=== PATIENT | female | born 1970 | race African-American/Black ===

== ENCOUNTER → 2016-09-11 | Outpatient (CLI) | payer OTHER ==
--- NOTE | ~2016-09-11 | US98 ---
[facility] A Service of [facility] RADIOLOGY TEXT RESULTS PATIENT: MICHELE CASPER LOCATION: [facility] : 74 UNIT #: [id number] AGE: [address]: ERICA KIM APRN SEX: F ORDER DR: [id number] [facility] [address] [place], [place] [address] [id number] O MR#: [id number] Acc #: [id number] NAME: MICHELE CASPER : 1970 SEX: F STUDY DATE/TIME: 09/11/2016 13:13 UNIT: [facility] ROOM: STUDY DESCRIPTION: US Pelvic Non-OB Complete Attending Physician: Erica Kim Aprn Referring Physician: Ginger Camara M.D. Ordering Physician: Erica Kim Aprn Primary Care Physician: Ginger Camara M.D. MEDICAL IMAGING REPORT This report is preliminary unless electronic signature is present EXAM Pelvic ultrasound INDICATION Irregular vaginal bleeding for the past 5 months with generalized pelvic pain for the past 5 months. PROCEDURE Nettles-scale and Doppler imaging of the pelvis via transabdominal and transvaginal approach. COMPARISON None. FINDINGS Uterus anteverted and measures 11.3 x 6.1 x 7.4 cm. Endometrium measures up to 2.1 cm in thickness. Right ovary measures 2.7 x 4.8 x 3.2 cm. Left ovary measures 4.3 x 4.2 x 6.3 cm and contains 2 cysts the largest measuring up to 4 cm. Likely fibroid in the uterus towards the fundus measures 2.9 cm. IMPRESSION 1. Endometrium is thickened measuring up to 2.1 cm. This may be physiologic. Correlate with menstrual status. A followup scan in 6 weeks could be performed to document any interval change. 2. Left ovarian cysts as detailed above are probably physiologic as well and can be followed to document improvement if desired clinically. 3. 2.9 cm fibroid in the uterus towards the fundus. Dictated by... Caleb Umaña M.D. [facility] A Service [facility] RADIOLOGY TEXT RESULTS PATIENT: MICHELE CASPER LOCATION: [facility] : 74 UNIT #: [id number] AGE: [address]: ERICA KIM APRN SEX: F ORDER DR: THIS IS AN ELECTRONICALLY VERIFIED REPORT Caleb Umaña M.D. at 09/13/2016 10:44 AM [place] TD: 09/12/2016 07:54 JOB #: [id number] MEDICAL IMAGING REPORT Page 1 of 1 COPY
== END | disposition home or self-care (01) ==
LOC: CWCC 12:56
DX: R93.8 Abnormal findings on diagnostic imaging of other specified body structures (principal); N83.202 Unspecified ovarian cyst, left side; D25.9 Leiomyoma of uterus, unspecified
CPT/HCPCS: 76830; 76856